=== PATIENT | female | born 1995 | race Caucasian/White ===

== ENCOUNTER 2017-10-10 21:35 | Emergency (ER) | payer OTHER ==
--- NOTE | 2017-10-10 22:42 | RAD ---
NASAL BONES THREE VIEWS: 10/10/17 HISTORY: Injury, pain in the nose. FINDINGS/IMPRESSION: There are bilaterally depressed nasal bone fractures. POS: [facility]
== END 2017-10-10 22:34 | disposition home or self-care (01) ==
LOC: SCSER 21:35
DX: S02.2XXA Fracture of nasal bones, initial encounter for closed fracture (principal); W51.XXXA Accidental striking against or bumped into by another person, initial encounter
CPT/HCPCS: 70160